=== PATIENT | male | born 1945 | race Caucasian/White ===

== ENCOUNTER 2021-01-19 14:26 | Outpatient (CLI) | payer MEDICARE, OTHER, SELFPAY ==
--- NOTE | 2021-01-19 15:00 | CT_ITS ---
WS: [id number] CT CHEST WITHOUT INTRAVENOUS CONTRAST HISTORY: R91.8 - Other nonspecific abnormal finding of lung field TECHNIQUE: Contiguous 5 mm axial imaging performed on the thorax. Coronal and sagittal reformats are submitted. All CT scans at [facility] use at least one of these dose optimization techniq ues: automated exposure control; mA and/or kV adjustment per patient size (includes targeted exams wh ere dose is matched to clinical indication); or iterative reconstruction. CONTRAST: None DLP: 1119.9 mGycm COMPARISON: None available. Lungs and central airway: Subsolid spiculated mass in the LEFT upper lobe measures 1.5 x 2.7 x 2.9 cm . Margins are spiculated and irregular and there is pleural tag. There is a small segment of involvem ent involving the superior fissure. Pleura: Normal. No pleural effusion. Heart and pericardium: Normal size heart with no pericardial effusion. Mediastinum and beth: No mediastinum or hilar adenopathy. There are a few mediastinal and hilar lymph nodes and axillary lymph nodes which appear benign. Vessels: Mild atherosclerosis aorta. No aneurysm. Chest wall and lower neck: No soft tissue masses. Upper abdomen: Small hiatal hernia. Subcentimeter low-attenuation lesion in the central liver measure s 8 mm. Gallbladder is contracted. No adrenal mass. Osseous structures: No destructive process. CT/CT chest wo con [id number] IMPRESSION: 1. Subsolid spiculated nodule measuring 1.5 x 2.7 x 2.9 cm in the LEFT upper l obe. Differential includes neoplasm and resolving pneumonia. Consider follow-up imaging with PET/CT. This nodule would be difficult access with CT-guided biop sy. 2. No adenopathy identified.
== END 2021-01-19 14:27 | disposition home or self-care (01) ==
LOC: RADWPI 14:30
PROVIDERS: PCP Registered Nurse; Visit Provider Registered Nurse
DX: R91.8 Other nonspecific abnormal finding of lung field (principal); R91.1 Solitary pulmonary nodule
CPT/HCPCS: 71250

== ENCOUNTER → 2021-03-02 10:58 | Outpatient (BNVA) | payer MEDICARE, OTHER, SELFPAY | PROVIDERS: PCP Registered Nurse; Visit Provider Internal Medicine Pulmonary Disease | DX: R91.8 Other nonspecific abnormal finding of lung field (principal) | CPT/HCPCS: 87635 ==

== ENCOUNTER 2021-03-05 10:39 | Outpatient (CLI) | payer MEDICARE, OTHER, SELFPAY ==
--- NOTE | 2021-03-05 11:19 | PFTS_ITS ---
Date of Study:03/05/21 Date of Dictation: MECHANICS: Forced vital capacity (FVC) is normal. Forced expiratory volume in one second (FEV1) is normal. FEV1/FVC is normal. FLOW VOLUME LOOP: Normal. LUNG VOLUMES: Total lung capacity (TLC) is normal. Residual volume (RV) is increased. DIFFUSING CAPACITY FOR CARBON MONOXIDE: Normal. INTERPRETATION: The prebronchodilator spirometry is normal. Lung volumes are consistent with mild air trapping. Gas exchange (DLCO) is normal. MTDD
[2021-03-05 11:22] LABS: ABG PCO2 32.8 mmHg (35-45); ABG PH Result 7.49 (7.35-7.45); Alveolar-Arterial Oxygen Gradi 1.7 mmHg (5-10); Arterial Blood Gas Hematocrit 48.9 % (42-52); Base Excess ABG 2.6 mmol/L (-2.0-2.0); Blood Gas Allen Test Pos; Blood Gas Operator Identificat BROMA; Blood Gas Sample Site Radial, left; Blood Gas Sample Type Arterial; Carboxyhemoglobin 1.7 %THgb (0.4-20.1); HCO3 ABG 25.3 mmol/L (22-26); HGB O2 Sat 96.7 % (95-100); Ionized Calcium Level - ABG 1.2 mmol/L (1.1-1.4); Methemoglobin 0.5 % (0.4-1.5); Oxygen Device ROOM AIR; Oxygen Saturation ABG 98.8; Potassium Level - ABG 4.1 mmol/L (3.5-5.0); Total Hemoglobin 15.9 g/dL (14-18)
== END 2021-03-05 10:40 | disposition home or self-care (01) ==
LOC: RT 10:43
PROVIDERS: PCP Registered Nurse; Visit Provider Internal Medicine Pulmonary Disease
DX: R06.02 Shortness of breath (principal)
CPT/HCPCS: 36600; 80051; 82330; 82805; 94010; 94726; 94729

== ENCOUNTER 2021-06-22 14:33 | Outpatient (CLI) | payer MEDICARE, OTHER, SELFPAY ==
--- NOTE | 2021-06-22 14:45 | CT_ITS ---
WS: [id number] CT CHEST WITHOUT INTRAVENOUS CONTRAST HISTORY: SOLITARY PULMONARY NODULE TECHNIQUE: Contiguous 5 mm axial imaging performed on the thorax. Coronal and sagittal reformats are submitted. All CT scans at [facility] use at least one of these dose optimization techniq ues: automated exposure control; mA and/or kV adjustment per patient size (includes targeted exams wh ere dose is matched to clinical indication); or iterative reconstruction. CONTRAST: None DLP: 852.91 mGycm COMPARISON: 01/19/2021 Lungs and central airway: Mildly spiculated and predominantly solid nodule in the LEFT upper lobe abu ts the LEFT major fissure. This nodule extends over length of 3.0 cm x 1.4 x 2.7 cm. Not significantl y increased in size. No additional masses or abnormalities. Pleura: Normal. No pleural effusion. Heart and pericardium: Mild cardiomegaly. Small anterior pericardial effusion. Mediastinum and beth: No mediastinum or hilar adenopathy. Vessels: Mild atherosclerosis aorta. Normal size pulmonary artery. Chest wall and lower neck: No soft tissue masses. Upper abdomen: Small hiatal hernia. No adrenal mass. Low-attenuation nodule measuring 8 mm in the madie tral RIGHT lobe of the liver is stable since 01/31/2021 Osseous structures: No destructive process. CT/CT chest wo con [id number] IMPRESSION: 1. No significant increase in size of the indeterminate LEFT upper lobe pulmon natalie mass measuring 3.0 x 1.4 x 2.7 cm. Minimal activity seen on PET/CT. Low-gra de neoplasm is not excluded. Continued close imaging follow-up recommended if s urgical removal is not contemplated. 2. No adenopathy. 3. Mild atherosclerosis aorta.
== END 2021-06-22 14:34 | disposition home or self-care (01) ==
PROVIDERS: PCP Registered Nurse; Visit Provider Internal Medicine Pulmonary Disease
DX: R91.1 Solitary pulmonary nodule (principal); I70.0 Atherosclerosis of aorta
CPT/HCPCS: 71250

== ENCOUNTER 2022-01-15 13:55 | Outpatient (CLI) | payer MEDICARE, OTHER, SELFPAY ==
--- NOTE | 2022-01-15 14:09 | CT_ITS ---
WS: [id number] CT CHEST WITHOUT INTRAVENOUS CONTRAST HISTORY: PULMONARY NODULE/CHRONIC BRONCHITIS/OBSTRUCTIVE SLEEP APNEA TECHNIQUE: Contiguous 5 mm axial imaging performed on the thorax. Coronal and sagittal reformats are submitted. All CT scans at [facility] use at least one of these dose optimization techniques: automated exposure control; mA and/or kV adjustment per patient size (includes targeted exams where dose is matched to clinical indication); or iterative reconstruction. CONTRAST: None DLP: 959.81 mGy.cm COMPARISON: 06/22/2021, 01/19/2021, PET/CT 01/31/2021 Lungs and central airway: Mild pulmonary hyperinflation. Abdominal solid ovoid mass persists in the L EFT upper lobe abutting the fissure. Mass is nearly solid with irregular margins measuring 2.6 x 1.3 cm. This mass extends over length of 3.2 cm. No significant increase in size since 01/19/2021. There gordon s also been no improvement. No additional nodules or pneumonia. Pleura: Normal. No pleural effusion. Heart and pericardium: Normal size heart. Small amount of pericardial thickening anteriorly similar t o prior studies. Mediastinum and beth: RIGHT axillary lymph node measures 15 mm. This lymph node was negative on the r ecent PET/CT. There is a small air pocket along the RIGHT superior trachea which is present on prior studies and probably small diverticulum. Vessels: Mild atherosclerosis aorta with no aneurysm. Normal size pulmonary artery. Chest wall and lower neck: No soft tissue masses. Upper abdomen: There are multiple low-attenuation nodules within the liver. The largest in the RIGHT lobe measures 2.0 cm. Hounsfield units are slightly elevated. There are additional smaller scattered areas of decreased attenuation. Some of these were evident on the prior CT of 06/22/2021. The largest n odule in the lower RIGHT lobe has not definitely been visualized. LEFT adrenal nodule measures 15 mm. Osseous structures: Mild RIGHT curvature thoracic spine. CT/CT chest wo con [id number] IMPRESSION: 1. No significant interval change of the LEFT upper lobe pulmonary opacificati on since 01/19/2021. Indeterminate but thought benign on a recent PET/CT. Asymmet ry measures 2.6 x 1.3 x 3.2 cm today. Recommend continued close follow-up by CT evaluation to demonstrate long-term stability. Slow-growing neoplasm not exclu ded. 2. No adenopathy. 3. There are a few areas of decreased attenuation scattered throughout the fuentes er which cannot be further evaluated on this examination. Some of these were pr esent on the prior study and some are new. Recommend follow-up hepatic ultrasou nd to evaluate for liver cysts. 4. Small benign-appearing LEFT adrenal nodule measuring 15 mm.
== END 2022-01-15 13:56 | disposition home or self-care (01) ==
PROVIDERS: PCP Registered Nurse; Visit Provider Internal Medicine Pulmonary Disease
DX: R91.1 Solitary pulmonary nodule (principal); J42 Unspecified chronic bronchitis; G47.33 Obstructive sleep apnea (adult) (pediatric)
CPT/HCPCS: 71250

== ENCOUNTER → 2022-03-23 10:15 | Outpatient (BNVA) | payer MEDICARE, OTHER, SELFPAY | PROVIDERS: PCP Registered Nurse; Visit Provider Registered Nurse | DX: I10 Essential (primary) hypertension (principal); J44.9 Chronic obstructive pulmonary disease, unspecified | CPT/HCPCS: 80053; 80061; 85025 ==

== ENCOUNTER → 2022-04-07 10:02 | Outpatient (BNVA) | payer MEDICARE, OTHER, SELFPAY | PROVIDERS: PCP Registered Nurse; Visit Provider Registered Nurse | DX: E87.1 Hypo-osmolality and hyponatremia (principal) | CPT/HCPCS: 80053 ==

== ENCOUNTER → 2022-05-10 09:26 | Outpatient (BNVA) | payer MEDICARE, OTHER, SELFPAY | PROVIDERS: PCP Registered Nurse; Visit Provider Registered Nurse | DX: I10 Essential (primary) hypertension (principal) | CPT/HCPCS: 80053 ==

== ENCOUNTER → 2022-06-09 11:57 | Outpatient (BNVA) | payer MEDICARE, OTHER, SELFPAY | PROVIDERS: PCP Registered Nurse; Visit Provider Nurse Practitioner Family | DX: I10 Essential (primary) hypertension (principal) | CPT/HCPCS: 80053; 85025 ==

== ENCOUNTER → 2022-06-14 08:55 | Outpatient (BNVA) | payer MEDICARE, OTHER, SELFPAY | PROVIDERS: PCP Registered Nurse; Visit Provider Nurse Practitioner Family | DX: I10 Essential (primary) hypertension (principal); J44.9 Chronic obstructive pulmonary disease, unspecified | CPT/HCPCS: 80053 ==

== ENCOUNTER → 2022-06-21 09:02 | Outpatient (BNVA) | payer MEDICARE, OTHER, SELFPAY | PROVIDERS: PCP Registered Nurse; Visit Provider Nurse Practitioner Family | DX: E87.1 Hypo-osmolality and hyponatremia (principal) | CPT/HCPCS: 80053 ==

== ENCOUNTER → 2022-07-08 10:30 | Outpatient (BNVA) | payer MEDICARE, OTHER, SELFPAY | PROVIDERS: PCP Registered Nurse; Visit Provider Registered Nurse | DX: I10 Essential (primary) hypertension (principal); T67.5XXA Heat exhaustion, unspecified, initial encounter | CPT/HCPCS: 80053 ==

== ENCOUNTER → 2023-01-19 14:33 | Outpatient (BNVA) | payer MEDICARE, SELFPAY | PROVIDERS: PCP Registered Nurse; Visit Provider Registered Nurse | DX: I10 Essential (primary) hypertension (principal); E78.5 Hyperlipidemia, unspecified; R73.9 Hyperglycemia, unspecified; J44.9 Chronic obstructive pulmonary disease, unspecified; G57.93 Unspecified mononeuropathy of bilateral lower limbs | CPT/HCPCS: 80053; 80061; 83036; 85025 ==

== ENCOUNTER → 2023-02-16 08:53 | Outpatient (BNVA) | payer MEDICARE, SELFPAY | PROVIDERS: PCP Registered Nurse; Visit Provider Registered Nurse | DX: E87.1 Hypo-osmolality and hyponatremia (principal) | CPT/HCPCS: 80053 ==

== ENCOUNTER → 2023-05-02 10:55 | Outpatient (BNVA) | payer MEDICARE, SELFPAY | PROVIDERS: PCP Registered Nurse; Visit Provider Registered Nurse | DX: L98.9 Disorder of the skin and subcutaneous tissue, unspecified (principal) | CPT/HCPCS: 88304 ==

== ENCOUNTER → 2023-05-26 14:24 | Outpatient (BNVA) | payer MEDICARE, SELFPAY | PROVIDERS: PCP Registered Nurse; Referring Provider Registered Nurse; Visit Provider Dermatology | DX: D04.39 Carcinoma in situ of skin of other parts of face (principal); C44.212 Basal cell carcinoma of skin of right ear and external auricular canal; L57.0 Actinic keratosis; L57.8 Other skin changes due to chronic exposure to nonionizing radiation; L81.4 Other melanin hyperpigmentation | CPT/HCPCS: 17000; 17003; 17282; 69100; 99203 ==

== ENCOUNTER → 2023-06-20 08:31 | Outpatient (BNVA) | payer MEDICARE, SELFPAY | PROVIDERS: PCP Registered Nurse; Visit Provider Dermatology | DX: C44.212 Basal cell carcinoma of skin of right ear and external auricular canal (principal) | CPT/HCPCS: 17311 ==

== ENCOUNTER 2023-06-22 13:33 | Outpatient (CLI) | payer MEDICARE, SELFPAY ==
--- NOTE | 2023-06-22 13:48 | CT_ITS ---
WS: [id number] CT CHEST TECHNIQUE: Noncontrast CT of the chest with coronal and sagittal reformatted images. CLINICAL INFORMATION: CHRONIC BRONCHITIS/PULMONARY NODULES COMPARISON: 01/15/2022 DLP: 555.[address] scans at [facility] use at least one of these dose optimization techniques: automated e xposure control; mA and/or kV adjustment per patient size (includes targeted exams where dose is matc hed to clinical indication); or iterative reconstruction. FINDINGS: Again seen is a solid ovoid mass in the left upper lobe abutting the fissure. Today this measures chiquis roximately 2.6 x 1.2 cm similar to previous 01/15/2022. This extends over approximately 3.5 cm on the s agittal imaging. This measures a few millimeters larger today and appears slightly more solid again s uspicious for slow growing neoplasm. This has increased in density and size compared to the original study 01/19/2021. Normal caliber thoracic aorta. Aortic calcification. Coronary calcification. Prominent axillary lymph nodes right greater than left are unchanged. Enlarged right axillary lymph node measuring 1.7 cm is stable in appearance. No solid or hilar lymphadenopathy. Tiny esophageal hernia. Low-attenuation lesions in the liver previ ously described appear unchanged. Stable left adrenal adenoma measuring 16 mm. Noncontrast spleen chiquis ears normal. Fatty atrophy of the pancreas. Normal thoracic spine. IMPRESSION: 1. Left upper lobe ovoid spiculated nodule extending to the fissure and pleura appears slightly more dense and increased in size a few millimeters today suspicious for slow-growing neoplasm. Consider f urther evaluation with PET/CT. 2. No other significant changes compared to previous. 3. Enlarged right axillary lymph node measuring 1.7 cm is stable. 4. Stable left adrenal adenoma measuring 16 mm. 5. Stable low-attenuation lesions in the liver. 6. Small esophageal hernia.
== END 2023-06-22 13:34 | disposition home or self-care (01) ==
PROVIDERS: PCP Registered Nurse; Visit Provider Physician Assistant Medical
DX: J42 Unspecified chronic bronchitis (principal); R91.8 Other nonspecific abnormal finding of lung field; R59.0 Localized enlarged lymph nodes; D35.02 Benign neoplasm of left adrenal gland; K76.9 Liver disease, unspecified; K44.9 Diaphragmatic hernia without obstruction or gangrene
CPT/HCPCS: 71250

== ENCOUNTER → 2023-07-11 10:31 | Outpatient (BNVA) | payer MEDICARE, SELFPAY | PROVIDERS: PCP Registered Nurse; Visit Provider Dermatology | DX: Z48.817 Encounter for surgical aftercare following surgery on the skin and subcutaneous tissue (principal); Z85.828 Personal history of other malignant neoplasm of skin | CPT/HCPCS: 99212 ==

== ENCOUNTER → 2023-08-01 13:33 | Outpatient (BNVA) | payer MEDICARE, SELFPAY | PROVIDERS: PCP Registered Nurse; Visit Provider Dermatology | DX: Z08 Encounter for follow-up examination after completed treatment for malignant neoplasm (principal); Z85.828 Personal history of other malignant neoplasm of skin; Z48.817 Encounter for surgical aftercare following surgery on the skin and subcutaneous tissue | CPT/HCPCS: 97597; 99212 ==

== ENCOUNTER 2023-08-06 05:27 | Outpatient (CLI) | payer MEDICARE, SELFPAY ==
--- NOTE | 2023-08-06 | PETR_ITS ---
PROCEDURE INFORMATION: Exam: PET/CT Skull Base to Mid-thigh Exam date and time: 08/06/2023 10:11 AM Age: 78 years old Clinical indication: Abnormal findings; 1. Left upper lobe ovoid spiculated nodule extending to the fissure and pleura appears slightly. More dense and increased in size a few millimeters; Additional info: Retrperitineal lymphadenopathy LABS AND CLINICAL REPORTS: Glucose: 122 mg/dl Treatment strategy for malignancy (PET staging): Initial Staging (PI) TECHNIQUE: Imaging protocol: Following at least four-hour fasting and following the injection of radiopharmaceutical, low dose CT images were obtained. Then, PET images were obtained. Attenuation corrected images were constructed using the CT scan. Fused images of PET and CT were reviewed. The standardized uptake values (SUV) reported below are maximum values within a region of interest, expressed in gm/ml. Exam includes orbital meatal line to mid-thigh. Radiopharmaceutical: 13.51 mCi F-18 FDG (Fluorodeoxyglucose), IV. Time of imaging post radiopharmaceutical administration: 1 hour Injection site: Left hand COMPARISON: PT PET Scan 01/31/2021 9:49 AM FINDINGS: Limitations: The examination is technically suboptimal secondary to the scan to injection time outside of recommended parameters (45-75 minutes). Reported scan to injection time of 95.8 minutes. Injection to scan times outside of recommended parameters can result in decreased PET sensitivity and limit the utility of comparison of SUV values to prior or subsequent exams. Brain: Visualized brain has normal physiologic uptake. Pharynx: No abnormal uptake. Larynx: No abnormal uptake. Lungs, pleura and trachea: A lateral left upper lobe solid noncalcified nodule measures 2.6 x 1.7 cm, SUV max 2.6 (previously 2.4 x 1.8 cm with a previous SUV max 1.5). Heart: Normal physiologic uptake. Mediastinal space: No abnormal uptake. Liver: No abnormal uptake. Gallbladder and bile ducts: No abnormal uptake. Pancreas: No abnormal uptake. Spleen: No abnormal uptake. Adrenal glands: A similar in size non radiotracer avid left adrenal nodule measuring approximately 1.4 cm in diameter is noted with a density of less than 10.0 HU. Kidneys and ureters: There is a similar exophytic rounded fluid density structure without elevated uptake arising from the mid right kidney measuring 2.7 cm in diameter. Unremarkable left kidney. Stomach and bowel: No abnormal uptake. Reproductive: There is marked enlargement of the prostate gland measuring up to 7 cm in greatest transverse dimension. No elevated uptake. Vasculature: No abnormal uptake. Diffuse atherosclerotic changes are noted, including within the coronary arteries. Lymph nodes: No abnormal uptake. There are similar in size mildly prominent non radiotracer avid bilateral axillary lymph nodes, for example measuring 1.7 x 1.2 cm on the left on series 3, image 82, SUV max 1.5 and 1.7 x 1.2 cm on the right on series 3, image 88, SUV max 0.9. There are similar in size prominent bilateral external iliac chain lymph nodes which are not radiotracer avid, for example on the left measuring 3.4 x 1.0 cm on series 3, image 177. Bones/joints: There are postoperative changes of right total hip arthroplasty. No abnormal uptake in the osseous structures. [id number] degenerative vertebral body spondylosis is present throughout the spine. Soft tissues: A linear region of elevated uptake in the region of the skin surface of the medial right gluteal fold is identified on series 3 between images 199 and 206, SUV max 14.7 (previously 7.2). A small uncomplicated appearing fat containing umbilical hernia is noted. METRICS: Mediastinal blood pool: SUV max 1.3 [id number] IMPRESSION: 1. Slight interval increase in size of a solid left upper lobe nodule compared with the prior PET-CT which demonstrates increased mild uptake (SUV max 2.6, previously 1.5). Interval increase in size and activity within the nodule is concerning for possible neoplastic involvement. 2. Similar appearance non radiotracer avid mildly prominent bilateral axillary and external iliac chain lymph nodes. Lack of uptake favors a benign etiology. 3. There is new linear uptake in the region of the medial right gluteal fold. The degree of uptake is suggestive of possible urinary skin contamination with radiotracer. The possibility of infectious, inflammatory neoplastic involvement cannot be entirely excluded. 4. Similar appearance of a left adrenal nodule consistent with a benign adenoma. 5. Simple appearing right renal cyst, unchanged. 6. Additional nonurgent findings as detailed above.
== END 2023-08-06 05:28 | disposition home or self-care (01) ==
PROVIDERS: PCP Registered Nurse; Visit Provider Internal Medicine Pulmonary Disease
DX: R91.8 Other nonspecific abnormal finding of lung field (principal); R59.0 Localized enlarged lymph nodes; R93.89 Abnormal findings on diagnostic imaging of other specified body structures
CPT/HCPCS: 78815; A9552

== ENCOUNTER → 2023-12-19 11:06 | Outpatient (BNVA) | payer OTHER, SELFPAY | PROVIDERS: PCP Registered Nurse; Visit Provider Registered Nurse | DX: I10 Essential (primary) hypertension (principal) | CPT/HCPCS: 80053; 80061; 85025 ==

== ENCOUNTER → 2024-01-31 13:28 | Outpatient (BNVA) | payer OTHER, SELFPAY | PROVIDERS: PCP Registered Nurse; Visit Provider Registered Nurse | DX: I10 Essential (primary) hypertension (principal) | CPT/HCPCS: 93005 ==

== ENCOUNTER → 2024-12-10 09:31 | Outpatient (BNVA) | payer MEDICARE, SELFPAY | PROVIDERS: PCP Registered Nurse; Visit Provider Nurse Practitioner Family | DX: L73.8 Other specified follicular disorders (principal); L81.4 Other melanin hyperpigmentation; Z08 Encounter for follow-up examination after completed treatment for malignant neoplasm; Z85.828 Personal history of other malignant neoplasm of skin; L72.0 Epidermal cyst; D48.5 Neoplasm of uncertain behavior of skin; L57.0 Actinic keratosis | CPT/HCPCS: 10060; 11102; 17000; 99213 ==

== ENCOUNTER → 2025-01-28 09:25 | Outpatient (BNVA) | payer MEDICARE, SELFPAY | PROVIDERS: PCP Registered Nurse; Visit Provider Dermatology | DX: C44.92 Squamous cell carcinoma of skin, unspecified (principal); L73.8 Other specified follicular disorders; L82.1 Other seborrheic keratosis; L57.0 Actinic keratosis; Z85.828 Personal history of other malignant neoplasm of skin; Z08 Encounter for follow-up examination after completed treatment for malignant neoplasm | CPT/HCPCS: 17000; 99213 ==

== ENCOUNTER → 2025-04-10 11:15 | Outpatient (BNVA) | payer MEDICARE, SELFPAY | PROVIDERS: PCP Registered Nurse; Visit Provider Registered Nurse | DX: I10 Essential (primary) hypertension (principal) | CPT/HCPCS: 80053; 80061; 85025 ==

== ENCOUNTER → 2025-06-11 09:36 | Outpatient (BNVA) | payer MEDICARE, SELFPAY | PROVIDERS: PCP Registered Nurse; Visit Provider Nurse Practitioner Family | DX: L73.8 Other specified follicular disorders (principal); D22.0 Melanocytic nevi of lip; L72.0 Epidermal cyst; L57.8 Other skin changes due to chronic exposure to nonionizing radiation; X32.XXXA Exposure to sunlight, initial encounter; L81.4 Other melanin hyperpigmentation; L82.1 Other seborrheic keratosis; Z08 Encounter for follow-up examination after completed treatment for malignant neoplasm; Z85.828 Personal history of other malignant neoplasm of skin; L57.0 Actinic keratosis | CPT/HCPCS: 17000; 99213 ==